=== PATIENT | female | born 1975 | race Caucasian/White ===

== ENCOUNTER 2021-11-29 18:37 | Observation (INO) ==
[2021-11-29] MEDS ORDERED: Isovue-370 500 ML BOTTLE IVP ONE (19:18)
[2021-11-29 19:51] LABS: Bacteria,Urine Few per hpf (None-Few); Bilirubin,Urine Negative (Negative); Blood,Urine Negative (Negative); Clarity,Urine Clear (Clear); Color,Urine Light-Yellow (Yellow); Glucose,Urine (UA) Normal (Normal); Ketones,Urine Negative (Negative); Leukocyte Esterase,Urine Trace (Negative); Mucus,Urine Few per lpf (None-Few); Nitrite,Urine Negative (Negative); Protein,Urine Negative (Neg-Trace); RBC,Urine 0-3 per hpf (0-3); Specific Gravity,Urine 1.007 (1.010-1.025); Squamous Epithelial Cell,Urine Moderate per hpf (None-Few); Urobilinogen,Urine Normal (Normal); WBC,Urine 0-3 per hpf (0-3)
[2021-11-29 19:53] LABS: Basophils % 0.4 %; Eosinophils # 0.2 K/mcL (0.0-0.6); Eosinophils % 2.4 %; Hemoglobin 11.7 g/dL (11.5-15.4); Immature Granulocytes % 0.4 % (0-4); Lymphocytes # 2.2 K/mcL (0.6-4.6); Lymphocytes % 30.3 %; Mean Corpuscular HGB Conc 32.5 g/dL (31.6-35.5); Mean Corpuscular Hemoglobin 28.3 pg (28.0-33.3); Mean Platelet Volume 9.9 fL (9.4-12.4); Monocytes # 0.5 K/mcL (0.0-1.3); Monocytes % 7.4 %; Neutrophils # 4.3 K/mcL (1.6-8.9); Platelet Count 362 K/mcL (140-400); Red Blood Count 4.14 M/mcL (3.82-4.97); Red Cell Distribution Width 13.7 % (11.5-14.5); Segmented Neutrophils % 59.1 %; White Blood Count 7.2 K/mcL (4.3-11.1)
[2021-11-29 20:11] LABS: Alanine Aminotransferase 8 Units/L (7-52); Albumin 3.5 g/dL (3.5-5.7); Alkaline Phosphatase 49 Units/L (34-104); Aspartate Amino Transferase 8 Units/L (13-39); BUN/Creatinine Ratio 8 (6-26); Bilirubin,Total 0.3 mg/dL (0.3-1.0); Blood Urea Nitrogen 5 mg/dL (6-20); Calcium 9.5 mg/dL (8.6-10.3); Carbon Dioxide 27 mEq/L (23-29); Chloride 104 mEq/L (98-107); Globulin 3.6 g/dL (2.4-3.5); Glucose 139 mg/dL (70-105); Osmolality,Calculated 290 (280-300); Potassium 3.1 mEq/L (3.5-5.1); Sodium 140 mEq/L (136-145); Total Protein 7.1 g/dL (6.4-8.9); eGFR For African Americans > 60 (> 60); eGFR For Non-African Americans > 60 (> 60)
[2021-11-29] MEDS ORDERED: 0.9 % Sodium Chloride 1,000 ML IV ONE (20:16)
[2021-11-29] MEDS ORDERED: Naloxone 0.4 MG/ML INJ IVP PRN (22:54)
[2021-11-29] MEDS ORDERED: Ondansetron 4 MG/2 ML VIAL IVP PRN (22:54)
[2021-11-29] MEDS ORDERED: Ketorolac 30 MG/ML VIAL IVP ONE (23:59)
[2021-11-30] MEDS: 0.9 % Sodium Chloride 1,000 ML IVC SCH ×2 (00:30→11:31)
[2021-11-30] MEDS: MetroNIDAZOLE 500 MG/100 ML 500 MG/100 ML BAG IVPB SCH ×4 (01:00→23:55)
[2021-11-30 07:05] LABS: Basophils % 0.3 %; Eosinophils # 0.1 K/mcL (0.0-0.6); Eosinophils % 2.2 %; Hematocrit 31.5 % (35.3-44.9); Hemoglobin 10.2 g/dL (11.5-15.4); Immature Granulocytes % 0.3 % (0-4); Lymphocytes # 2.1 K/mcL (0.6-4.6); Lymphocytes % 35.5 %; Mean Corpuscular HGB Conc 32.4 g/dL (31.6-35.5); Mean Corpuscular Volume 86.5 fL (83.0-100.0); Mean Platelet Volume 10.4 fL (9.4-12.4); Monocytes # 0.6 K/mcL (0.0-1.3); Monocytes % 9.6 %; Platelet Count 302 K/mcL (140-400); Red Blood Count 3.64 M/mcL (3.82-4.97); Red Cell Distribution Width 13.8 % (11.5-14.5); Segmented Neutrophils % 52.1 %; White Blood Count 5.8 K/mcL (4.3-11.1)
[2021-11-30 07:16] LABS: INR 1.3; Prothrombin Time 14.2 Seconds (9.4-12.1)
[2021-11-30 07:28] LABS: Alanine Aminotransferase 6 Units/L (7-52); Albumin/Globulin Ratio 1.1 (1.1-2.2); Alkaline Phosphatase 40 Units/L (34-104); Aspartate Amino Transferase 7 Units/L (13-39); BUN/Creatinine Ratio 7 (6-26); Bilirubin,Indirect 0.2 mg/dL (0.0-1.0); Bilirubin,Total 0.2 mg/dL (0.3-1.0); Blood Urea Nitrogen 4 mg/dL (6-20); Calcium 8.4 mg/dL (8.6-10.3); Carbon Dioxide 27 mEq/L (23-29); Chloride 107 mEq/L (98-107); Cholesterol 88 mg/dL (< 200); Globulin 2.8 g/dL (2.4-3.5); Glucose 162 mg/dL (70-105); HDL Cholesterol 29 mg/dL (40-59); LDL Cholesterol,Calculated 20 mg/dL (< 100); Magnesium 1.3 mg/dL (1.6-2.6); Osmolality,Calculated 288 (280-300); Sodium 139 mEq/L (136-145); Total Protein 5.8 g/dL (6.4-8.9); Triglycerides 194 mg/dL (< 150); eGFR For African Americans > 60 (> 60); eGFR For Non-African Americans > 60 (> 60)
[2021-11-30] MEDS: Acetaminophen 325 MG TABLET PO PRN ×2 (08:10→17:32)
[2021-11-30] MEDS ORDERED: *HR* HYDROmorphone (PF) 1 MG/ML SYRINGE IVP PRN (13:04)
[2021-11-30] MEDS ORDERED: SODIUM CHLORIDE/NAHCO3/KCL/PEG 4,000 ML SOLN.RECON PO ONE (17:00)
[2021-11-30] MEDS ORDERED: *HR* Promethazine 25 MG/ML VIAL IM PRN (17:41)
[2021-11-30] MEDS ORDERED: Ketorolac 30 MG/ML VIAL IVP ONE (17:42)
[2021-11-30] MEDS ORDERED: Ondansetron 4 MG/2 ML VIAL IVP PRN (17:42)
[2021-11-30] MEDS ORDERED: Prochlorperazine 10 MG/2 ML VIAL IVP ONE (17:45)
[2021-12-01 07:35] LABS: BUN/Creatinine Ratio 7 (6-26); Blood Urea Nitrogen 4 mg/dL (6-20); Calcium 8.6 mg/dL (8.6-10.3); Carbon Dioxide 26 mEq/L (23-29); Chloride 107 mEq/L (98-107); Glucose 127 mg/dL (70-105); Osmolality,Calculated 288 (280-300); Potassium 3.3 mEq/L (3.5-5.1); Sodium 140 mEq/L (136-145); eGFR For African Americans > 60 (> 60); eGFR For Non-African Americans > 60 (> 60)
[2021-12-01 07:42] LABS: Basophils % 0.3 %; Eosinophils # 0.2 K/mcL (0.0-0.6); Eosinophils % 2.9 %; Hematocrit 32.7 % (35.3-44.9); Hemoglobin 10.5 g/dL (11.5-15.4); Immature Granulocytes % 0.3 % (0-4); Lymphocytes # 2.1 K/mcL (0.6-4.6); Lymphocytes % 36.4 %; Mean Corpuscular HGB Conc 32.1 g/dL (31.6-35.5); Mean Corpuscular Hemoglobin 28.2 pg (28.0-33.3); Mean Corpuscular Volume 87.7 fL (83.0-100.0); Mean Platelet Volume 10.2 fL (9.4-12.4); Monocytes # 0.4 K/mcL (0.0-1.3); Monocytes % 7.6 %; Platelet Count 324 K/mcL (140-400); Red Blood Count 3.73 M/mcL (3.82-4.97); Segmented Neutrophils % 52.5 %; White Blood Count 5.8 K/mcL (4.3-11.1)
[2021-12-01] MEDS: MetroNIDAZOLE 500 MG/100 ML 500 MG/100 ML BAG IVPB SCH ×2 (08:26→15:53)
[2021-12-01] MEDS: Acetaminophen 325 MG TABLET PO PRN (10:07)
[2021-12-02] MEDS ORDERED: MethylPREDNISolone 40 MG/ML VIAL IVP SCH
[2021-12-02] MEDS: MetroNIDAZOLE 500 MG/100 ML 500 MG/100 ML BAG IVPB SCH ×4 (01:18→23:23)
[2021-12-02] MEDS ORDERED: Prochlorperazine 10 MG/2 ML VIAL IVP PRN (02:53)
[2021-12-02] MEDS ORDERED: Ketorolac 30 MG/ML VIAL IVP ONE (02:53)
[2021-12-02] MEDS: Pantoprazole 40 MG VIAL IVP SCH (08:52)
[2021-12-02] MEDS: lisinopriL 5 MG TABLET PO SCH (08:52)
[2021-12-02 11:51] LABS: Hematocrit 39.5 % (35.3-44.9); Mean Corpuscular HGB Conc 31.4 g/dL (31.6-35.5); Mean Corpuscular Hemoglobin 27.2 pg (28.0-33.3); Mean Corpuscular Volume 86.6 fL (83.0-100.0); Mean Platelet Volume 9.8 fL (9.4-12.4); Platelet Count 377 K/mcL (140-400); Red Blood Count 4.56 M/mcL (3.82-4.97); Red Cell Distribution Width 13.9 % (11.5-14.5); White Blood Count 7.2 K/mcL (4.3-11.1)
[2021-12-02 11:53] LABS: Hemoglobin 12.4 g/dL (11.5-15.4)
[2021-12-02 12:09] LABS: BUN/Creatinine Ratio 8 (6-26); Blood Urea Nitrogen 5 mg/dL (6-20); Calcium 9.4 mg/dL (8.6-10.3); Carbon Dioxide 24 mEq/L (23-29); Chloride 104 mEq/L (98-107); Glucose 141 mg/dL (70-105); Osmolality,Calculated 284 (280-300); Potassium 3.6 mEq/L (3.5-5.1); Sodium 137 mEq/L (136-145); eGFR For African Americans > 60 (> 60); eGFR For Non-African Americans > 60 (> 60)
[2021-12-02] MEDS ORDERED: Lidocaine -MPF 2% 2 ML VIAL ONE (14:48)
[2021-12-02] MEDS ORDERED: Ondansetron 4 MG/2 ML VIAL ONE (15:12)
[2021-12-02] MEDS ORDERED: *HR* Succinylcholine 200 MG/10 ML VIAL IVP ONE (16:12)
[2021-12-03 06:50] LABS: Mean Corpuscular HGB Conc 32.4 g/dL (31.6-35.5); Mean Corpuscular Volume 86.5 fL (83.0-100.0); Mean Platelet Volume 9.9 fL (9.4-12.4); Platelet Count 355 K/mcL (140-400); Red Blood Count 3.93 M/mcL (3.82-4.97); Red Cell Distribution Width 14.1 % (11.5-14.5); White Blood Count 8.3 K/mcL (4.3-11.1)
[2021-12-03 07:20] LABS: BUN/Creatinine Ratio 11 (6-26); Blood Urea Nitrogen 6 mg/dL (6-20); Carbon Dioxide 24 mEq/L (23-29); Chloride 104 mEq/L (98-107); Glucose 160 mg/dL (70-105); Osmolality,Calculated 285 (280-300); Potassium 3.7 mEq/L (3.5-5.1); Sodium 137 mEq/L (136-145); eGFR For African Americans > 60 (> 60); eGFR For Non-African Americans > 60 (> 60)
[2021-12-03] MEDS: MetroNIDAZOLE 500 MG/100 ML 500 MG/100 ML BAG IVPB SCH (07:45)
[2021-12-03] MEDS ORDERED: MethylPREDNISolone 40 MG/ML VIAL IVP SCH (09:47)
[2021-12-03] MEDS: lisinopriL 5 MG TABLET PO SCH (10:09)
[2021-12-03] MEDS: Pantoprazole 40 MG VIAL IVP SCH (10:10)
[2021-12-03] MEDS: methylPREDNISolone 4 MG TABLET PO SCH (17:49)
[2021-12-04 05:07] VITALS: BP 141/81; PULSE 57; TEMP 98.5; O2SAT 96
[2021-12-04] MEDS: Pantoprazole 40 MG VIAL IVP SCH (07:42)
[2021-12-04] MEDS: methylPREDNISolone 4 MG TABLET PO SCH (07:52)
[2021-12-04] MEDS: lisinopriL 5 MG TABLET PO SCH (07:52)
== END 2021-12-04 08:14 | disposition home or self-care (01) ==
LOC: EMEROOARM 18:37 → 3ANU 18:37 → SUATTDRO 22:43 → 3ANU 23:32
PROVIDERS: ADMIT Nurse Practitioner; ATTEND Nurse Practitioner
PROC: ENDOCBX (2021-12-02 15:00)